=== PATIENT | male | born 1995 | race Hispanic/Latino ===

== ENCOUNTER 2018-12-01 22:02 | Emergency (ER) | payer OTHER ==
[~2018-12-01] VITALS: Ht 177.8 cm; Wt 78.6 kg
[2018-12-01 22:06] VITALS: BP 143/88
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
== END 2018-12-01 23:23 | disposition home or self-care (01) ==
LOC: M ED 22:02
DX: S81.842A Puncture wound with foreign body, left lower leg, initial encounter (principal); W34.010A Accidental discharge of airgun, initial encounter; Y92.018 Other place in single-family (private) house as the place of occurrence of the external cause